=== PATIENT | male | born 1980 | race African-American/Black ===

== ENCOUNTER 2016-12-22 07:58 | Emergency (ER) | payer MEDICARE ==
[~2016-12-22 07:58] MED LIST: APRESOLINE100 MG PO; ASPIRIN CHEWABL81 MG PO; CATAPRES-TTS 31 EACH TOP; CELEXA20 MG PO; KAYEXALATE15 G/60 ML PO; LOPRESSOR50 MG PO; NORCO 5-325 TA1 EACH PO; NORVASC10 MG PO; OXYCODONE HCL10 MG PO; OXYCODONE HCL20 MG PO; PEPCID20 MG PO; PHOSLO667 MG PO; PRILOSEC40 MG PO; RENVELA2.4 GM PO; SENSIPAR60 MG PO; SEROQUEL25 MG PO; XANAX0.5 MG PO; ZEBETA5 MG PO; ZESTRIL40 MG PO; ZOFRAN4 MG PO
[2016-12-22 08:39] LABS: BASOPHIL 0.4 % (0-2); EOSINOPHIL 0.8 % (0-5); HCT 27.5 % (42.0-52.0); HGB 8.8 g/dl (13.2-18.0); LYMPHOCYTE 10.1 % (15-48); MCV 87.6 fL (78.0-100.0); MONOCYTE 3.4 % (0-12); MPV 10.3 fL (6.0-9.5); NEUTROPHIL 85.3 % (41-80); PLT 233 K/uL (150-400); RBC 3.14 M/uL (4.70-6.00); RDW 16.4 % (11.5-14.0); WBC 8.4 K/uL (4.0-10.5)
[2016-12-22 08:46] LABS: POTASSIUM 4.6 mmol/L (3.5-5.1)
[2016-12-22 08:52] LABS: CREATININE 14.2 mg/dL (0.7-1.2)
== END 2016-12-22 10:31 | disposition home or self-care (01) ==
LOC: FER 07:58
PROVIDERS: Internal Medicine
DX: R07.89 Other chest pain (principal); R09.89 Other specified symptoms and signs involving the circulatory and respiratory systems; I12.9 Hypertensive chronic kidney disease with stage 1 through stage 4 chronic kidney disease, or unspecified chronic kidney disease; N18.9 Chronic kidney disease, unspecified; Z99.2 Dependence on renal dialysis; Z79.899 Other long term (current) drug therapy
CPT/HCPCS: 36415; 71010; 80048; 84484; 85025; 93005; J1170; J2405

== ENCOUNTER 2020-07-18 04:40 | Day surgery (SDCO) | payer MEDICARE, OTHER ==
[~2020-07-18 04:40] MED LIST changes: +ASPIRIN EC81 MG PO; +AZITHROMYCIN250 MG PO; +BACITRACIN15 GM TOP; +BENADRYL25 MG PO; +BENTYL10 MG PO; +CARAFATE S500 MG/TSP PO; +CARAFATE1 G1 PO; +CLINDAMYCIN HC300 MG PO; +FLEXERIL10 MG PO; +LEVAQUIN250 MG PO; +MUCINEX 600MG600 MG PO; +OMEPRAZOLE40 MG PO; +PERCOCET 10-321 EACH PO; +PERCOCET 5-3251 EACH PO; +PHENERGAN12.5 M1 PO; +PHENERGAN25 M1 PO; +PHENERGAN25 MG PR; +PROMETHEGA12.5 MG/SU PR; +PROTONIX 40MG T40 MG PO; +QUETIAPINE FUMA50 MG PO; +RENVELA800 MG PO; +SENSIPAR30 MG PO; +SEROQUEL 25MG T25 MG PO; +TRAMADOL HCL50 MG PO; +ULTRAM50 MG PO; +VENTOLIN HFA IN18 GM INH; +VOLTAREN **OUT75 MG PO
[2020-07-18 05:58] LABS: BASOPHIL 0.8 % (0-2); EOSINOPHIL 0.9 % (0-5); HCT 28.3 % (42.0-52.0); HGB 8.7 g/dl (13.2-18.0); LYMPHOCYTE 7.6 % (15-48); MCH 29.9 pg (25.0-31.0); MCHC 30.7 g/dL (32.0-36.0); MCV 97.3 fL (78.0-100.0); MONOCYTE 7.5 % (0-12); MPV 10.4 fL (6.0-9.5); NEUTROPHIL 81.1 % (41-80); NRBC 0; PLT 113 K/uL (150-400); RBC 2.91 M/uL (4.70-6.00); RDW 17.7 % (11.5-14.0); WBC 7.7 K/uL (4.0-10.5)
[2020-07-18 06:08] LABS: INR 1.56 (0.9-1.2); PROTHROMBIN TIME 17.7 SECONDS (11.4-13.6); PTT 49.4 SECONDS (22.2-34.7)
[2020-07-18 06:16] LABS: ALBUMIN 2.8 g/dL (3.4-5.0); BILIRUBIN - TOTAL 1.6 mg/dL (0.2-1.0); BUN/CREAT RATIO (CALC) 5.9 RATIO; CREATININE 6.13 mg/dL (0.67-1.17); GLOBULIN (CALCULATION) 6.6 g/dL; MAGNESIUM 1.9 mg/dL (1.8-2.4); POTASSIUM 3.8 mmol/L (3.5-5.1); TOTAL PROTEIN 9.4 g/dL (6.4-8.2)
[2020-07-18 06:24] LABS: PRO-BNP > 35000 pg/mL (<125)
== END 2020-07-18 20:13 | disposition other institution (70) ==
LOC: FER 04:40 → FTCU 12:03
PROVIDERS: Emergency Medicine; ADMIT Internal Medicine
DX: I47.2 Ventricular tachycardia (principal); I49.01 Ventricular fibrillation; I13.2 Hypertensive heart and chronic kidney disease with heart failure and with stage 5 chronic kidney disease, or end stage renal disease; N18.6 End stage renal disease; I50.9 Heart failure, unspecified; Z99.2 Dependence on renal dialysis; R10.9 Unspecified abdominal pain; J90 Pleural effusion, not elsewhere classified; D63.8 Anemia in other chronic diseases classified elsewhere; R11.0 Nausea; Z88.5 Allergy status to narcotic agent; Z88.8 Allergy status to other drugs, medicaments and biological substances; Z87.891 Personal history of nicotine dependence; Z79.82 Long term (current) use of aspirin; Z20.822 Contact with and (suspected) exposure to COVID-19; Z95.810 Presence of automatic (implantable) cardiac defibrillator; R11.10 Vomiting, unspecified; R19.7 Diarrhea, unspecified
CPT/HCPCS: 36415; 71045; 80053; 83605; 83690; 83735; 83880; 84145; 84484; 85025; 85610; 85730; 93005; G0378; J1170; J1200; J2550; J7030; Q0169; Q9967; U0002

== ENCOUNTER 2020-07-30 03:04 | Emergency (ER) | payer MEDICARE, OTHER ==
[2020-07-30 03:38] LABS: BASOPHIL 0.9 % (0-2); EOSINOPHIL 2.8 % (0-5); HGB 9.4 g/dl (13.2-18.0); LYMPHOCYTE 9.4 % (15-48); MCH 30.3 pg (25.0-31.0); MCHC 31.3 g/dL (32.0-36.0); MCV 96.8 fL (78.0-100.0); MONOCYTE 8.6 % (0-12); NEUTROPHIL 77.8 % (41-80); NRBC 0; PLT 130 K/uL (150-400); RDW 16.4 % (11.5-14.0); WBC 6.5 K/uL (4.0-10.5)
[2020-07-30 04:02] LABS: ALBUMIN 2.7 g/dL (3.4-5.0); BILIRUBIN - TOTAL 1.1 mg/dL (0.2-1.0); BUN/CREAT RATIO (CALC) 6.4 RATIO; CREATININE 9.56 mg/dL (0.67-1.17); POTASSIUM 5.7 mmol/L (3.5-5.1); TOTAL PROTEIN 8.7 g/dL (6.4-8.2)
== END 2020-07-30 07:27 | disposition other institution (70) ==
LOC: FER 03:04
PROVIDERS: Emergency Medicine
DX: R19.00 Intra-abdominal and pelvic swelling, mass and lump, unspecified site (principal); R10.84 Generalized abdominal pain; N18.6 End stage renal disease; R20.2 Paresthesia of skin; R11.2 Nausea with vomiting, unspecified; R19.7 Diarrhea, unspecified; I50.9 Heart failure, unspecified; Z99.2 Dependence on renal dialysis
CPT/HCPCS: 36415; 80053; 82150; 83690; 85025; 96372; J0780; J1170; J2550

== ENCOUNTER 2020-08-08 06:01 | Emergency (ER) | payer MEDICARE, OTHER ==
[2020-08-08 07:06] LABS: BASOPHIL 0.7 % (0-2); EOSINOPHIL 1.6 % (0-5); HGB 7.9 g/dl (13.2-18.0); MCH 29.5 pg (25.0-31.0); MCHC 31.6 g/dL (32.0-36.0); MCV 93.3 fL (78.0-100.0); MONOCYTE 5.3 % (0-12); MPV 10.9 fL (6.0-9.5); NEUTROPHIL 84.9 % (41-80); NRBC 0; RBC 2.68 M/uL (4.70-6.00); RDW 16.1 % (11.5-14.0); WBC 8.1 K/uL (4.0-10.5)
[2020-08-08 07:11] LABS: ALBUMIN 2.6 g/dL (3.4-5.0); BILIRUBIN - TOTAL 1.1 mg/dL (0.2-1.0); BUN/CREAT RATIO (CALC) 8.4 RATIO; CREATININE 6.81 mg/dL (0.67-1.17); GLOBULIN (CALCULATION) 5.9 g/dL; MAGNESIUM 1.7 mg/dL (1.8-2.4); POTASSIUM 3.4 mmol/L (3.5-5.1); TOTAL PROTEIN 8.5 g/dL (6.4-8.2)
[2020-08-08 07:17] LABS: PLT 120 K/uL (150-400)
== END 2020-08-08 10:05 | disposition left against medical advice (07) ==
LOC: FER 06:01
PROVIDERS: Emergency Medicine
DX: K52.9 Noninfective gastroenteritis and colitis, unspecified (principal); D64.9 Anemia, unspecified; N18.6 End stage renal disease; I50.9 Heart failure, unspecified; Z99.2 Dependence on renal dialysis; Z87.19 Personal history of other diseases of the digestive system; Z87.891 Personal history of nicotine dependence; Z88.5 Allergy status to narcotic agent; Z88.8 Allergy status to other drugs, medicaments and biological substances; Z53.8 Procedure and treatment not carried out for other reasons; Z20.822 Contact with and (suspected) exposure to COVID-19
CPT/HCPCS: 36415; 80053; 83690; 83735; 84145; 85025; 93005; J1170; J2543; J2550; J3370; J7050; Q9967; U0002